=== PATIENT | male | born 1985 | race Caucasian/White ===

== ENCOUNTER → 2018-07-09 | Outpatient (CLI) | payer BC ==
--- NOTE | 2018-07-09 17:23 | Diagnostic Imaging Report ---
INDICATION: Scrotal nodule. EXAM: Scrotal sonography was performed in routine fashion, including color Doppler. COMPARISON: There is no prior study for comparison. FINDINGS: The right testicle measured 5.2 x 2.2 x 3.6 cm. The left testicle measured 4.4 x 2.1 x 3.6 cm. There is no testicular mass. There is color flow to both testicles. The epididymides appear symmetric and without focal lesion. There is no overt hydrocele. Scanning was performed over the area patient palpated clinically, and no sonographic abnormality was detected. IMPRESSION: Negative scrotal sonography. Dictated by: Dictated on workstation # [id number]
== END ==
LOC: RAD 16:03
PROVIDERS: ATTEND Nurse Practitioner Family
DX: N49.2 Inflammatory disorders of scrotum (principal)
CPT/HCPCS: 76870